=== PATIENT | female | born 1975 | race Caucasian/White ===

== ENCOUNTER 2020-05-10 10:11 | Outpatient (REF) | payer BC, SELFPAY ==
[2020-05-10 11:56] LABS: MANUAL DIFF FLAG NO
[2020-05-10 12:01] LABS: Basophils Percent Auto 0.6 % (0-2); Eosinophils Absolute Auto 0.1 X10*3/uL (0.0-0.4); Eosinophils Percent Auto 1.5 % (0-4); Hematocrit 36.7 % (37-47); Hemoglobin 11.5 g/dl (12.0-16.0); Imm Gran Abs Auto 0.01 X10*3/uL (0.00-0.03); Imm Gran Pct Auto 0.1 % (0.0-0.4); Lymphocytes Absolute Auto 2.5 X10*3/uL (1.2-4.9); Lymphocytes Percent Auto 36.8 % (20-40); Mean Corpuscular HGB Conc 31.3 g/dl (31.0-35.0); Mean Corpuscular Hemoglobin 25.4 pg (27.0-33.0); Mean Corpuscular Volume 81.2 fL (80-98); Mean Platelet Volume 9.3 fL (9.4-12.3); Monocytes Absolute Auto 0.7 X10*3/uL (0.1-1.2); Monocytes Percent Auto 9.9 % (2-11); Neutrophils Absolute Auto 3.5 X10*3/uL (2.0-8.3); Neutrophils Percent Auto 51.1 % (45-73); Platelet Count 439 X10*3/uL (160-400); Red Blood Count 4.52 X10*6/uL (4.20-5.50); Red Cell Distribution Width 14.6 % (11.0-16.0); White Blood Count 6.8 X10*3/uL (4.8-10.8)
[2020-05-10 12:38] LABS: Alanine Aminotransferase 13 U/L (0-31); Albumin Level 4.3 g/dL (3.5-5.0); Alkaline Phosphatase 56 U/L (39-117); Anion Gap 12 (12-20); Aspartate Amino Transferase 12 U/L (5-31); Bilirubin Total 0.4 mg/dL (0.0-1.0); Blood Urea Nitrogen 12 mg/dL (9-16); Calcium 9.4 mg/dL (8.4-10.2); Carbon Dioxide 27 mmol/L (22-29); Chloride 105 mmol/L (96-108); Cholesterol 184 mg/dL; Estimated Glomerular Filt Rate > 60; Glucose Fasting 99 mg/dL (60-99); HDL Cholesterol 53 mg/dL; LDL Cholesterol Calculated 118 mg/dl; Potassium 4.6 mmol/L (3.3-5.1); Sodium 139 mmol/L (135-145); Total Protein 7.3 g/dL (6.5-8.0); Triglycerides 68 mg/dL
[2020-05-10 12:42] LABS: TSH reflex Free T4 2.21 uIU/mL (0.32-4.0)
[2020-05-10 12:46] LABS: Creatinine Urine 147.62 mg/dL; Microalbum/Creatinine Ratio Ur 14.9 ug/mg cr
[2020-05-12 16:49] LABS: Folate 19.8 ng/mL (> or = 4.0); Vitamin B12 652 pg/mL (200-900)
== END 2020-05-10 10:12 | disposition home or self-care (01) ==
LOC: HO.WFDLDS 10:11
PROVIDERS: Visit Provider Family Medicine
DX: Z00.00 Encounter for general adult medical examination without abnormal findings (principal); R53.83 Other fatigue; I10 Essential (primary) hypertension; E11.9 Type 2 diabetes mellitus without complications; E78.5 Hyperlipidemia, unspecified
CPT/HCPCS: 36415; 80053; 80061; 82043; 82607; 82746; 84443; 85025

== ENCOUNTER 2022-01-02 07:04 | Outpatient (REF) | payer BC, SELFPAY ==
[2022-01-02 12:00] LABS: Basophils Percent Auto 0.5 % (0-2); Eosinophils Absolute Auto 0.1 X10*3/uL (0.0-0.4); Eosinophils Percent Auto 0.7 % (0-4); Hematocrit 36.9 % (37.0-47.0); Hemoglobin 11.9 g/dl (12.0-16.0); Imm Gran Abs Auto 0.02 X10*3/uL (0.00-0.03); Imm Gran Pct Auto 0.3 % (0.0-0.4); Lymphocytes Absolute Auto 2.3 X10*3/uL (1.2-4.9); Lymphocytes Percent Auto 31.1 % (20-40); MANUAL DIFF FLAG NO; Mean Corpuscular HGB Conc 32.2 g/dl (31.0-35.0); Mean Corpuscular Hemoglobin 25.5 pg (27.0-33.0); Mean Platelet Volume 9.3 fL (9.4-12.3); Monocytes Absolute Auto 0.6 X10*3/uL (0.1-1.2); Monocytes Percent Auto 8.7 % (2-11); Neutrophils Absolute Auto 4.3 x10*3/uL (2.0-8.3); Neutrophils Percent Auto 58.7 % (45-73); Platelet Count 386 X10*3/uL (160-400); Red Blood Count 4.67 X10*6/uL (4.20-5.50); Red Cell Distribution Width 15.6 % (11.0-16.0); White Blood Count 7.3 X10*3/uL (4.8-10.8)
[2022-01-02 12:01] LABS: Appearance Urine Clear; Color Urine Yellow; Glucose Urine UA Negative (Negative); Leukocyte Esterase Urine Negative (Negative); Nitrite Urine Negative (Negative); PH 5.5 (5.0-9.0); Specific Gravity - Urine 1.025 (1.005-1.025); Urine Blood Negative (Negative); Urine Ketones Negative (Negative); Urine Protein Negative (Neg-Trace)
[2022-01-02 12:35] LABS: Creatinine Urine 192.54 mg/dL; Microalbum/Creatinine Ratio Ur 21.8 ug/mg cr
[2022-01-02 12:49] LABS: TSH reflex Free T4 2.24 uIU/mL (0.32-4.0)
[2022-01-02 12:50] LABS: Alanine Aminotransferase 11 U/L (0-31); Albumin Level 4.1 g/dL (3.5-5.0); Alkaline Phosphatase 55 U/L (39-117); Anion Gap 15 (12-20); Aspartate Amino Transferase 12 U/L (5-31); Bilirubin Total 0.2 mg/dL (0.0-1.0); Blood Urea Nitrogen 15 mg/dL (9-16); Calcium 9.1 mg/dL (8.4-10.2); Carbon Dioxide 21 mmol/L (22-29); Chloride 104 mmol/L (96-108); Cholesterol 200 mg/dL; Estimated Glomerular Filt Rate > 60; Glucose Fasting 133 mg/dL (60-99); HDL Cholesterol 46 mg/dL; LDL Cholesterol Calculated 121 mg/dl; Potassium 4.3 mmol/L (3.3-5.1); Sodium 136 mmol/L (135-145); Triglycerides 166 mg/dL
== END 2022-01-02 07:05 | disposition home or self-care (01) ==
LOC: HO.WFDLDS 07:04
PROVIDERS: Visit Provider Family Medicine
DX: Z00.00 Encounter for general adult medical examination without abnormal findings (principal); I10 Essential (primary) hypertension
CPT/HCPCS: 36415; 80053; 80061; 81003; 82043; 84443; 85025

== ENCOUNTER 2022-05-31 06:46 | Outpatient (REF) | payer BC, SELFPAY ==
[2022-05-31 07:49] LABS: Estimated Average Glucose 134 mg/dL; Hemoglobin A1c % 6.3 %
[2022-05-31 08:01] LABS: Alanine Aminotransferase 12 U/L (0-31); Alkaline Phosphatase 62 U/L (39-117); Anion Gap 14 (12-20); Aspartate Amino Transferase 13 U/L (5-31); Bilirubin Total 0.5 mg/dL (0.0-1.0); Blood Urea Nitrogen 11 mg/dL (9-16); Calcium 9.1 mg/dL (8.4-10.2); Carbon Dioxide 23 mmol/L (22-29); Chloride 106 mmol/L (96-108); Cholesterol 200 mg/dL; Estimated Glomerular Filt Rate > 60; Glucose Random 145 mg/dL (60-115); HDL Cholesterol 41 mg/dL; LDL Cholesterol Calculated 124 mg/dl; Potassium 4.7 mmol/L (3.3-5.1); Sodium 138 mmol/L (135-145); Total Protein 6.7 g/dL (6.5-8.0); Triglycerides 176 mg/dL
== END 2022-05-31 06:47 | disposition home or self-care (01) ==
LOC: HO.LAB 06:46
PROVIDERS: PCP Family Medicine; Visit Provider Family Medicine
DX: Z00.00 Encounter for general adult medical examination without abnormal findings (principal); E78.5 Hyperlipidemia, unspecified; E11.9 Type 2 diabetes mellitus without complications; I10 Essential (primary) hypertension
CPT/HCPCS: 36415; 80053; 80061; 83036

== ENCOUNTER 2023-03-05 06:52 | Outpatient (REF) | payer BC, SELFPAY ==
[2023-03-05 08:03] LABS: Alanine Aminotransferase 17 U/L (0-31); Alkaline Phosphatase 69 U/L (39-117); Anion Gap 10 (12-20); Aspartate Amino Transferase 14 U/L (5-31); Bilirubin Total 0.4 mg/dL (0.0-1.0); Blood Urea Nitrogen 11 mg/dL (9-16); Calcium 8.8 mg/dL (8.4-10.2); Carbon Dioxide 25 mmol/L (22-29); Chloride 106 mmol/L (96-108); Cholesterol 151 mg/dL (<200); Estimated Glomerular Filt Rate > 60; Glucose Fasting 185 mg/dL (60-99); HDL Cholesterol 44 mg/dL (>40); LDL Cholesterol Calculated 65 mg/dL (<100); Potassium 4.2 mmol/L (3.3-5.1); Sodium 137 mmol/L (135-145); Triglycerides 214 mg/dL (<150)
== END 2023-03-05 06:53 | disposition home or self-care (01) ==
LOC: HO.LAB 06:52
PROVIDERS: PCP Family Medicine; Visit Provider Family Medicine
DX: Z00.00 Encounter for general adult medical examination without abnormal findings (principal); E78.5 Hyperlipidemia, unspecified
CPT/HCPCS: 36415; 80053; 80061

== ENCOUNTER 2023-03-10 10:40 | Outpatient (AMB) | payer BC, SELFPAY ==
--- NOTE | 2023-03-10 10:46 | MHC.PC.OV ---
Vital Signs 03/10/23 10:49 03/10/23 10:57 Height 5 ft 6 in Weight 213 lb BMI 34.4 BP 158/100 H 160/100 H Blood Pressure Location Lt brachial Rt brachial Position Sitting Sitting Respiration 13 Pulse 92 Pulse Source Pulse Oximeter Pulse Oximetry (%) 98 Oxygen Delivery Method Room Air Intake Visit Reasons: f/u diabetes and hyperlipidemia Intake Note: Patient is here to discuss her labs. Patient Services Specialist Required: No Accompanied by: Self / Same As Patient Allergies prochlorperazine Allergy (Unknown, Verified 03/10/23 10:53) Panic and hyperactivity Tobacco use date assessed: 01/02/22 HPI f/u diabetes and hyperlipidemia HPI Details 47 y/o female presents to f/u diabetes and hyperlipidemia. Last A1c in May was 6.3%. She is diet-controlled for her diabetes. Labs were drawn 03/05/23. Reviewed labs with pt. Elevated fasting glucose of 185. A1c today 03/10/23 is 7.3%. Triglycerides 214. TC 151. LDL 65. HDL 44. She is on rosuvastatin 10mg daily. Blood pressure today 158/100. She had been on lisinopril in the past. She notes she has not been watching her sugars/starches over the holidays. [facility] Surgical History History of section History of parotid gland excision Family History (Updated 06/03/22 @ 15:41 by Juana Stallworth CMA) Father HTN (hypertension) CVD (cardiovascular disease) Mother HTN (hypertension) Graves disease Sister No problems noted. Son No problems noted. Daughter No problems noted. Social History (Updated 03/10/23 @ 10:55 by Bobbi Shah [facility]) Household Members: Spouse and Children Housing: House Alcohol intake: never Patient Tobacco Use Status: Never used Tobacco e-Cigarette/Vaping Use: Never Used Second Hand Smoke Exposure: No service: No Current occupational status: employed Current occupational exposures/hazards: No Sexual orientation: Unable to collect Gender identity: Unable to collect Cognitive needs: No Hearing needs: No Vision needs: No Questionnaire GARRETT-7 AMB Questionnaire GARRETT-7 Date GARRETT - 7 assessed: 01/02/22 Source: Developed by Drs. Yoel Peralta, Yola Elkins, Saman Ross and colleagues, with an educational marilyn from [employer]. Review of Systems Const Denies chills, Denies fatigue, Denies fever(s), Denies headache(s) and Denies weakness ENT Denies dizziness and Denies headache(s) Card Denies dyspnea Resp Denies cough, Denies dyspnea, Denies wheezing and Denies other (shortness of breath) Musc Denies numbness and Denies tingling Neuro Denies dizziness, Denies headache(s), Denies numbness, Denies tingling and Denies weakness Psych Denies anxiety and Denies depression Endo Denies fatigue Aller/Immun Denies wheezing Physical exam (Primary Care) Vital Signs: Last Vital Signs Pulse 92 03/10/23 10:49 Resp 13 03/10/23 10:49 BP 160/100 H 03/10/23 10:57 Pulse Ox 98 03/10/23 10:49 Oxygen Delivery Method Room Air 03/10/23 10:49 BMI result Body Mass Index 34.4 Tobacco/Smoking Status: Tobacco use Status Tobacco use date assessed 01/02/22 03/10/23 10:47 Patient Tobacco Use Status Never used Tobacco 03/10/23 10:55 e-Cigarette/Vaping Use Never Used 03/10/23 10:55 Const General: well developed; No acute distress Nutritional Appearance: obese Orientation/consciousness: patient oriented x3 HENMT Head: Yes normocephalic and Yes atraumatic Eyes General: appearance normal, both eyes and all related structures Pupils: Equal, round and reactive pupils present EOM: EOMs intact bilaterally Resp Effort & Inspection: normal respiratory effort Auscultation: clear to auscultation bilaterally Cardio Rate: regular rate Rhythm: regular rhythm Heart sounds: S1 normal heart sound present, S2 normal heart sound present, no gallops, no murmurs and no rubs Neuro General: patient oriented x3 and gait normal Cranial nerves: Yes Equal, round and reactive pupils present Psych Affect: normal affect Assessment and Plan Assessment & Plan (1) Diet-controlled diabetes mellitus: Code(s): E11.9 - Type 2 diabetes mellitus without complications Plan: A1c?today?is 7.3%. Goal?is?less?than?7.0% Will?give?her?some?glipizide?and?I?encouraged?lifestyle?changes. Hopefully?with?lifestyle?changes?she?can?discontinue?glipizide?soon?and?resume?diet?control. (2) Essential hypertension: Code(s): I10 - Essential (primary) hypertension Plan: Blood?pressure?is?high.??She?had?been?on?lisinopril?in?the?past. Will?resume?lisinopril?5?mg?daily. (3) Hyperlipidemia: Code(s): E78.5 - Hyperlipidemia, unspecified Plan: TC?and?LDL?cholesterol?are?well?controlled?on?rosuvastatin.??HDL?is?good. Triglycerides?are?high?and?this?may?be?a?function?of?her?elevated ?blood?sugar. Continue?rosuvastatin Encouraged?lifestyle?changes Orders: Orders AMB Hemoglobin A1c Today E11.9 - Type 2 diabetes mellitus without complications Medications: New glipizide ER 5 mg PO DAILY 30 tabs 1RF 30 days Changed From lisinopril 5 mg PO DAILY 1 tab 2RF To lisinopril 5 mg PO DAILY 30 days 30 tabs 2RF Coding Level of Care Code Est Pt Level 4 (97174) Diagnoses Diet-controlled diabetes mellitus E11.9 Essential hypertension I10 Hyperlipidemia E78.5
[2023-03-10 10:49] VITALS: BP 158/100; PULSE 92; RESP 13; O2SAT 98; BMI 34.4
[2023-03-10 10:57] VITALS: BP 160/100
== END 2023-03-10 11:13 | disposition home or self-care (01) ==
PROVIDERS: PCP Family Medicine; Visit Provider Family Medicine
DX: E11.9 Type 2 diabetes mellitus without complications (principal); I10 Essential (primary) hypertension; E78.5 Hyperlipidemia, unspecified
CPT/HCPCS: 83036; 99214

== ENCOUNTER 2023-05-13 09:44 | Outpatient (AMB) | payer BC, SELFPAY ==
[2023-05-13 09:48] VITALS: BP 158/88; PULSE 83; O2SAT 98; BMI 33.9
--- NOTE | 2023-05-13 09:48 | MHC.PC.OV ---
Vital Signs 05/13/23 09:48 Height 5 ft 6 in Weight 210 lb BMI 33.9 BP 158/88 H Blood Pressure Location Lt brachial Position Sitting Pulse 83 Pulse Source Pulse Oximeter Pulse Oximetry (%) 98 Oxygen Delivery Method Room Air Intake Visit Reasons: f/u hypertension and diabetes Intake Note: Patient is here to follow up on hypertension and diabetes. Allergies prochlorperazine Allergy (Unknown, Verified 05/13/23 09:50) Panic and hyperactivity Tobacco use date assessed: 05/13/23 Dental Screening Dental Screen Date: 05/13/23 Did you have a dental visit in the last 12 months?: Yes Did you have a dental problem in the last 6 months where you did not have access to dental care?: No Was dental information given to patient?: Patient has dentist HPI f/u hypertension and diabetes HPI Details 48 y/o female presents to f/u hypertension and diabetes. Last A1c 03/10/23 7.3%. Previously diet controlled and had started her on glipizide ER 5mg daily. Pt reports dizziness from relatively low blood sugar in the 80s. Blood pressure today 158/88. She is on lisinopril-hydrochlorothiazide 10-12.5mg daily. COUNT INCLUDES [facility] Surgical History History of parotid gland excision History of section Family History Father HTN (hypertension) CVD (cardiovascular disease) Mother HTN (hypertension) Graves disease Sister No problems noted. Son No problems noted. Daughter No problems noted. 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 Current occupational exposures/hazards: No Sexual orientation: Unable to collect Gender identity: Unable to collect Cognitive needs: No Hearing needs: No Vision needs: No Questionnaire PHQ-9 Over the last 2 weeks, how often have you been bothered by any of the following problems? 1. Little interest or pleasure in doing things: not at all 2. Feeling down, depressed, or hopeless: not at all 3. Trouble falling or staying asleep, or sleeping too much: not at all 4. Feeling tired or having little energy: not at all 5. Poor appetite or overeating: not at all 6. Feeling bad about yourself - or that you are a failure or have let yourself or your family down: not at all 7. Trouble concentrating on things, such as reading the newspaper or watching television: not at all 8. Moving or speaking so slowly that other people could have noticed. Or the opposite - being so fidgety or restless that you have been moving around a lot more than usual: not at all 9. Thoughts that you would be better off or of hurting yourself in some way: not at all Total score: 0 Depression Screening Interpretation: Negative Depression Screening Done: Yes Source: Developed by Drs. Yoel Peralta, Yola Elkins, Saman Ross and colleagues, with an educational marilyn from [employer]. Thrive Questionnaire Date Thrive assessed: 05/13/23 I am a: Patient What is your living situation today?: I have a steady place to live Within the past 12 months, did the food you bought not last and you didn't have the money to get more?: Never true Within the past 12 months, did you worry whether your food would run out before you got money to buy more?: Never true Do you have trouble paying for medicines?: No Do you have trouble getting transportation to medical appointments?: No Do you have trouble paying your heating and electricity bill?: No Do you have trouble taking care of your child, family member or friend?: No Do you have trouble with day-to-day activities such as bathing, preparing meals, shopping, managing finances, etc.?: No Are you currently unemployed and looking for a job?: No Are you interested in more education?: No THRIVE Score: 0 AUDIT C Alcohol Use Questionnaire (AUDIT-C) 1. How often do you have a drink containing alcohol?: Monthly or less 2. How many drinks containing alcohol do you have on a typical day when you are drinking?: 1 or 2 3. How often do you have six or more drinks on one occasion?: Never Total Score: 1 GARRETT-7 AMB Questionnaire GARRETT-7 Date GARRETT - 7 assessed: 05/13/23 Feeling nervous, anxious, or on edge: 0 = Not at all Not being able to stop or control worryin = Not at all Worrying too much about different things: 0 = Not at all Trouble relaxin = Not at all Being so restless that it is hard to sit still: 0 = Not at all Becoming easily annoyed or irritable: 0 = Not at all Feeling afraid as if something awful might happen: 0 = Not at all Total GARRETT-7 score (0-4 normal; 5-9 mild; 10-14 moderate; 15-21 severe): 0 Source: Developed by Drs. Yoel Peralta, Yola Elkins, Saman Ross and colleagues, with an educational marilyn from [employer]. Review of Systems Const Denies chills, Denies fatigue, Denies fever(s), Denies headache(s) and Denies weakness ENT Denies dizziness and Denies headache(s) Card Denies chest pain, Denies lightheadedness, Denies dyspnea and Denies other (Palpitations) Resp Denies cough, Denies dyspnea, Denies wheezing and Denies other ( shortness of breath) Musc Denies numbness and Denies tingling Neuro Denies dizziness, Denies headache(s), Denies numbness, Denies tingling, Denies paresthesias and Denies weakness Psych Denies anxiety and Denies depression Endo Denies fatigue Aller/Immun Denies wheezing Physical exam (Primary Care) Vital Signs: Last Vital Signs Pulse 83 05/13/23 09:48 BP 158/88 H 05/13/23 09:48 Pulse Ox 98 05/13/23 09:48 Oxygen Delivery Method Room Air 05/13/23 09:48 BMI result Body Mass Index 33.9 Tobacco/Smoking Status: Tobacco use Status Tobacco use date assessed 05/13/23 05/13/23 09:52 Patient Tobacco Use Status Never used Tobacco 05/13/23 09:52 e-Cigarette/Vaping Use Never Used 05/13/23 09:52 PHQ-9: PHQ-9 Score PHQ-9: Total score 0 05/13/23 10:00 Depression Screening Interpretation: Negative Thrive Assessment: Date of Thrive Assessment Date Thrive assessed 05/13/23 05/13/23 10:00 Const General: no acute distress and well developed Nutritional Appearance: well nourished Orientation/consciousness: patient oriented x3 [facility] Head: Yes normocephalic and Yes atraumatic Eyes General: appearance normal, both eyes and all related structures Pupils: Equal, round and reactive pupils present EOM: EOMs intact bilaterally Resp Effort & Inspection: normal respiratory effort Auscultation: clear to auscultation bilaterally Cardio Rate: regular rate Rhythm: regular rhythm Heart sounds: S1 normal heart sound present, S2 normal heart sound present, no gallops, no murmurs and no rubs Neuro General: patient oriented x3 and gait normal Cranial nerves: Yes Equal, round and reactive pupils present Psych Affect: normal affect Assessment and Plan Assessment & Plan (1) Essential hypertension: Code(s): I10 - Essential (primary) hypertension Plan: Diastolic?blood?pressure?has?improved?but?her?systolic?blood?pressure?is?still?too?high. Will?increase?lisinopril?in?her?combo?pill. New?dose lisinopril-hydrochlorothiazide?. (2) Diabetes: Code(s): E11.9 - Type 2 diabetes mellitus without complications Plan: She?has?only?taken?her?glipizide?few?times?and?noted?that?her?blood?sugar?went?down?to?80?and?she?felt?a?little?shaky. We?discussed?that?80?is?a?normal?blood?sugar?but?she?may?be?feeling?some?relative?low?blood?sugars She?will?try?2.5?mg?of?glipizide?for?a?little?while?to?get?used?to?it. She?can?recheck?her?blood?sugars?after?15?minutes?if?her?blood?sugars?are?in?the?70s?or?80s?to?ensure?it?is?not?going?lower Eat?regular?meals Work?on?weight?loss?and?exercise Medications: New lisinopril-hydrochlorothiazide 20-12.5 mg 1 tab PO DAILY 90 tabs 2RF 90 days Discontinued lisinopril-hydrochlorothiazide 10-12.5 mg Discontinued Reason: Doctor's Order 1 tab PO DAILY 30 tabs 2RF 30 days Coding Level of Care Code Est Pt Level 3 (99503) Diagnoses Essential hypertension I10 Diabetes E11.9
== END 2023-05-13 10:13 | disposition home or self-care (01) ==
PROVIDERS: PCP Family Medicine; Visit Provider Family Medicine
DX: I10 Essential (primary) hypertension (principal); E11.9 Type 2 diabetes mellitus without complications
CPT/HCPCS: 99213

== ENCOUNTER 2023-07-15 08:37 | Outpatient (AMB) | payer BC, SELFPAY ==
[2023-07-15 08:42] VITALS: BP 156/73; PULSE 93; O2SAT 100; BMI 33.1
--- NOTE | 2023-07-15 08:42 | A.OFFPC_ITS ---
Vital Signs 07/15/23 08:42 Height 5 ft 6 in Weight 205 lb BMI 33.1 BP 156/73 H Blood Pressure Location Lt brachial Position Sitting Pulse 93 Pulse Source Pulse Oximeter Pulse Oximetry (%) 100 Oxygen Delivery Method Room Air Intake Visit Reasons: f/u hypertension and diabetes Intake Note: Patient is here to follow up on hypertension and diabetes. Allergies prochlorperazine Allergy (Unknown, Verified 07/15/23 08:44) Panic and hyperactivity Medication List - Last Reconciled 07/15/23 by Donis Damian MD glipizide ER 5 mg PO DAILY 30 days lisinopril-hydrochlorothiazide 20-12.5 mg 1 tab PO DAILY 90 days rosuvastatin 10 mg PO DAILY 30 days scopolamine base 1 patch transdermal Q3D PRN 14 days Tobacco use date assessed: 07/15/23 Dental Screening Dental Screen Date: 05/13/23 HPI f/u hypertension and diabetes HPI Details 48 y/o female presents to f/u hypertensi on, diabetes. A1c today 07/15/23 is 7.1%, which improved from 7.3%. She is on glipizide 5mg daily. Blood pressure today 156/73. She is on lisinopril-hydrochlorothiazide 20-12.5mg daily. She notes she has an eye exam scheduled next month. HPI Comments History of Present Illness Details Documentation assistance for Donis Damian MD, was provided by Hima Orozco, Physiotherapy Assistant on 07/15/2023 9:02 AM [facility]. Gabriela, Dr. Damian, have read, observed, and verified documentation. [facility] Surgical History History of parotid gland excision History of section Family History Father HTN (hypertension) CVD (cardiovascular disease) Mother HTN (hypertension) Graves disease Sister No problems noted. Son No problems noted. Daughter No problems noted. 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 Current occupational exposures/hazards: No Sexual orientation: Unable to collect Gender identity: Unable to collect Cognitive needs: No Hearing needs: No Vision needs: No Questionnaire Thrive Questionnaire Date Thrive assessed: 05/13/23 GARRETT-7 AMB Questionnaire GARRETT-7 Date GARRETT - 7 assessed: 05/13/23 Source: Developed by Drs. Yoel Peralta, Yola Elkins, Saman Ross and colleagues, with an educational marilyn from [employer]. Review of Systems Const Denies chills, Denies fatigue, Denies fever(s), Denies headache(s) and Denies weakness ENT Denies dizziness and Denies headache(s) Card Denies dyspnea Resp Denies cough, Denies dyspnea, Denies wheezing and Denies other (shortness of breath) Musc Denies numbness and Denies tingling Neuro Denies dizziness, Denies headache(s), Denies numbness, Denies tingling and Denies weakness Psych Denies anxiety and Denies depression Endo Denies fatigue Aller/Immun Denies wheezing Physical exam (Primary Care) Vital Signs: Last Vital Signs Pulse 93 07/15/23 08:42 BP 156/73 H 07/15/23 08:42 Pulse Ox 100 07/15/23 08:42 Oxygen Delivery Method Room Air 07/15/23 08:42 BMI result Body Mass Index 33.1 Tobacco/Smoking Status: Tobacco use Status Tobacco use date assessed 07/15/23 07/15/23 08:44 Patient Tobacco Use Status Never used Tobacco 07/15/23 08:44 e-Cigarette/Vaping Use Never Used 07/15/23 08:44 Thrive Assessment: Date of Thrive Assessment Date Thrive assessed 05/13/23 07/15/23 08:44 Const General: well developed; No acute distress Nutritional Appearance: well nourished Orientation/consciousness: patient oriented x3 HENMT Head: Yes normocephalic and Yes atraumatic Eyes General: appearance normal, both eyes and all related structures Pupils: Equal, round and reactive pupils present EOM: EOMs intact bilaterally Resp Effort & Inspection: normal respiratory effort Auscultation: clear to auscultation bilaterally Cardio Rate: regular rate Rhythm: regular rhythm Heart sounds: S1 normal heart sound present, S2 normal heart sound present, no gallops, no murmurs and no rubs Neuro General: patient oriented x3 and gait normal Cranial nerves: Yes Equal, round and reactive pupils present Psych Affect: normal affect Results AMB Hemoglobin A1c AMB Hemoglobin A1c 7.1 % Last Edit by Juana Stallworth CMA on 07/15/23 08:59 Results Reviewed Results Reviewed: Laboratory Last Values Hgb A1c (Clinic) 7.1 % (4.0-6.0) H 07/15/23 08:53 Assessment and Plan Assessment & Plan (1) Essential hypertension: Code(s): I10 - Essential (primary) hypertension Plan: Blood?pressure?is?still?high?despite?increa sing?the?lisinopril?in?her?combo?pill?from?10?mg?daily?to?20?mg?daily. She?is?on?lisinopril-hydrochlorothiazide?19/02.5. Will?add?amlodipine?5?mg?daily Follow-up?in?3?months (2) Diabetes: Code(s): E11.9 - Type 2 diabetes mellitus without complications Plan: She?is?taking?glipizide?as?prescribed A1c?improved?from?7.3%?to?7.1%. Fair?control?and?improving.??Goal?is?less?than?7.0% Continue?current?medication?regimen?and?I?encouraged?diabetic?diet She?has?an?upcoming?appointment?with?Ophthalmology Orders: Orders AMB Hemoglobin A1c Today Z13.9 - Encounter for screening, unspecified Medications: New amlodipine 5 mg PO DAILY 90 days 90 tabs 2RF Coding Level of Care Code Est Pt Level 3 (30979) Diagnoses Essential hypertension I10 Diabetes E11.9
== END 2023-07-15 09:15 | disposition home or self-care (01) ==
PROVIDERS: PCP Family Medicine; Visit Provider Family Medicine
DX: I10 Essential (primary) hypertension (principal); E11.9 Type 2 diabetes mellitus without complications
CPT/HCPCS: 83036; 99213

== ENCOUNTER 2023-11-27 14:38 | Outpatient (AMB) | payer BC, SELFPAY ==
--- NOTE | 2023-11-27 14:49 | MHC.PC.OV ---
Vital Signs 11/27/23 14:51 Height 5 ft 6 in Weight 209 lb 2 oz BMI 33.7 BP 120/80 Blood Pressure Location Rt brachial Position Sitting Respiration 12 Pulse 94 Pulse Source Pulse Oximeter Temp 98.3 F Temp Source Oral Pulse Oximetry (%) 99 Oxygen Delivery Method Room Air Intake Visit Reasons: f/u diabetes, hypertension Intake Note: follow up DM and htn Allergies prochlorperazine Allergy (Unknown, Verified 11/27/23 14:50) Panic and hyperactivity Medication List - Last Reconciled 11/27/23 by Donis Damian MD amlodipine 5 mg PO DAILY 90 days glipizide ER 5 mg PO DAILY 30 days lisinopril-hydrochlorothiazide 20-12.5 mg 1 tab PO DAILY 90 days rosuvastatin 10 mg PO DAILY 30 days scopolamine base 1 patch transdermal Q3D PRN 14 days Tobacco use date assessed: 07/15/23 Dental Screening Dental Screen Date: 05/13/23 HPI f/u diabetes, hypertension HPI Details 48 y/o female presents to f/u diabetes, hypertension. Had increased her lisinopril in her combo pill as her systolic pressure had been too high. She only took glipizide a couple of times because she noted blood sugars going down to the 80s and felt shaky. We discussed this and she will trialing titrating on this starting at 2.5 mg daily of glipizide. A1c today 11/27/23 6.6%. HPI Comments History of Present Illness Details Documentation assistance for Donis Damian MD, was provided by Hima Orozco, [employer] on 11/27/2023 at 2:54 PM EST. I, Dr. Damian, have read, observed, and verified documentation. FORMERLY [facility], [facility]–1983 Surgical History History of parotid gland excision History of section Family History Father HTN (hypertension) CVD (cardiovascular disease) Mother HTN (hypertension) Graves disease Sister No problems noted. Son No problems noted. Daughter No problems noted. 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 Current occupational exposures/hazards: No Sexual orientation: Unable to collect Gender identity: Unable to collect Cognitive needs: No Hearing needs: No Vision needs: No Questionnaire Thrive Questionnaire Date Thrive assessed: 05/13/23 AUDIT C Alcohol Use Questionnaire (AUDIT-C) 2. How many drinks containing alcohol do you have on a typical day when you are drinking?: 1 or 2 3. How often do you have six or more drinks on one occasion?: Never Total Score: 0 GARRETT-7 AMB Questionnaire GARRETT-7 Date GARRETT - 7 assessed: 05/13/23 Source: Developed by Drs. Yoel Peralta, Yola Elkins, Saman Ross and colleagues, with an educational marilyn from [employer]. Review of Systems Const Denies chills, Denies fatigue, Denies fever(s), Denies headache(s) and Denies weakness ENT Denies dizziness and Denies headache(s) Card Denies dyspnea Resp Denies cough, Denies dyspnea, Denies wheezing and Denies other (shortness of breath) Musc Denies numbness and Denies tingling Neuro Denies dizziness, Denies headache(s), Denies numbness, Denies tingling and Denies weakness Psych Denies anxiety and Denies depression Endo Denies fatigue Aller/Immun Denies wheezing Physical exam (Primary Care) Vital Signs: Last Vital Signs Temp 98.3 F 11/27/23 14:51 Pulse 94 11/27/23 14:51 Resp 12 11/27/23 14:51 BP 120/80 11/27/23 14:51 Pulse Ox 99 11/27/23 14:51 Oxygen Delivery Method Room Air 11/27/23 14:51 BMI result Body Mass Index 33.7 Tobacco/Smoking Status: Tobacco use Status Tobacco use date assessed 07/15/23 11/27/23 14:54 Patient Tobacco Use Status Never used Tobacco 11/27/23 14:54 e-Cigarette/Vaping Use Never Used 11/27/23 14:54 Thrive Assessment: Date of Thrive Assessment Date Thrive assessed 05/13/23 11/27/23 14:54 Const General: well developed; No acute distress Nutritional Appearance: well nourished Orientation/consciousness: patient oriented x3 [facility] Head: Yes normocephalic and Yes atraumatic Eyes General: appearance normal, both eyes and all related structures Pupils: Equal, round and reactive pupils present EOM: EOMs intact bilaterally Resp Effort & Inspection: normal respiratory effort Auscultation: clear to auscultation bilaterally Cardio Rate: regular rate Rhythm: regular rhythm Heart sounds: S1 normal heart sound present, S2 normal heart sound present, no gallops, no murmurs and no rubs Neuro General: patient oriented x3 and gait normal Cranial nerves: Yes Equal, round and reactive pupils present Psych Affect: normal affect Assessment and Plan Assessment & Plan (1) Diabetes: Code(s): E11.9 - Type 2 diabetes mellitus without complications Plan: A1c?is?improved?at?6.6%.??Goal?is?less?than?7.0% Patient?would?like?to?trial?Ozempic. Will?start?Ozempic?0.25?mg?weekly. She?will?continue?her?glipizide?for?now?but?will?check?her?blood?sugars?and?she?can?discontinue?it?if?blood?sugars?are?getting?into?the?70s?or?any?lower. If?we?increase?the?dose?she?will?likely?be?able?to?discontinue?glipizide?and?just?use?Ozempic Continue?working?on?diabetic?diet Advised?diabetic?retinal?exam?and?she?says?she?has?an?hospice aide?that?she?plans?to?see. (2) Essential hypertension: Code(s): I10 - Essential (primary) hypertension Plan: Blood?pressure?appears?controlled.??Goal?is?less?than?140/90 Blood?pressure?was?high?at?last?visit?on?lisinopril?hydrochlorothiazide?and?I?had?sent?a?script?for?amlodipine. However,?patient?did?not?take?the?amlodipine?and?worked?on?diet?and?exercise. She?can?continue?lisinopril-hydrochlorothiazide?as?prescribed. Continue?exercise,?diet,?weight?loss?and?salt/sodium?avoidance (3) Obesity: Code(s): E66.9 - Obesity, unspecified Plan: Patient?would?like?to?try?Ozempic.??She?is?diabetic. Risks/benefits?of?Ozempic?were?discussed Start?Ozempic?and?we?can?follow-up?on?her?weight?at?her?next?visit. Orders: Orders Comprehensive [place]. Panel Fast Today Z00.00 - Encounter for general adult medical examination without abnormal findings TSH reflex Free T4 Today Z00.00 - Encounter for general adult medical examination without abnormal findings UA and rflx microscopic Today Z00.00 - Encounter for general adult medical examination without abnormal findings Microalbumin, Random (w Creat) Today I10 - Essential (primary) hypertension AMB Hemoglobin A1c Today Z13.9 - Encounter for screening, unspecified Lipid Panel Today Z00.00 - Encounter for general adult medical examination without abnormal findings LDL Cholesterol Direct Today E78.5 - Hyperlipidemia, unspecified Medications: New semaglutide (Ozempic) for 4 weeks 0.25 mg (0.368 mL) subcut QWEEK 28 days 1.472 mL 3RF E11.9 - Type 2 diabetes mellitus without complications, E66.9 - Obesity, unspecified Discontinued amlodipine Discontinued Reason: Doctor's Order 5 mg PO DAILY 90 days 90 tabs 2RF Coding Level of Care Code Est Pt Level 3 (88544) Diagnoses Diabetes E11.9 Essential hypertension I10 Obesity E66.9
[2023-11-27 14:51] VITALS: BP 120/80; PULSE 94; RESP 12; TEMP 36.8; O2SAT 99; BMI 33.7
== END 2023-11-27 15:14 | disposition home or self-care (01) ==
PROVIDERS: PCP Family Medicine; Visit Provider Family Medicine
DX: E11.9 Type 2 diabetes mellitus without complications (principal); I10 Essential (primary) hypertension; E66.9 Obesity, unspecified; Z68.33 Body mass index [BMI] 33.0-33.9, adult

== ENCOUNTER → 2023-11-27 14:38 | Outpatient (BNVA) | payer BC, SELFPAY | PROVIDERS: PCP Family Medicine; Visit Provider Family Medicine | DX: E11.9 Type 2 diabetes mellitus without complications (principal); I10 Essential (primary) hypertension; E66.9 Obesity, unspecified; Z68.33 Body mass index [BMI] 33.0-33.9, adult; Z79.899 Other long term (current) drug therapy ==

== ENCOUNTER 2024-02-17 14:26 | Outpatient (AMB) | payer BC, SELFPAY ==
--- NOTE | 2024-02-17 14:36 | MHC.PC.OV ---
Vital Signs 02/17/24 14:40 Height 5 ft 6 in Weight 211 lb BMI 34.1 BP 120/70 Blood Pressure Location Rt brachial Position Sitting Respiration 16 Pulse 90 Pulse Source Pulse Oximeter Pulse Oximetry (%) 98 Oxygen Delivery Method Room Air Intake Visit Reasons: f/u diabetes, hypertension, weight Intake Note: f/u dm htn weight management Allergies prochlorperazine Allergy (Unknown, Verified 02/17/24 14:39) Panic and hyperactivity Medication List - Last Reconciled 02/17/24 by Donis Damian MD glipizide ER 5 mg PO DAILY 30 days lisinopril-hydrochlorothiazide 20-12.5 mg 1 tab PO DAILY 90 days rosuvastatin 10 mg PO DAILY 30 days scopolamine base 1 patch transdermal Q3D PRN 14 days semaglutide (Ozempic) 0.25 mg (0.368 mL) subcut QWEEK 28 days Tobacco use date assessed: 07/15/23 Dental Screening Dental Screen Date: 05/13/23 HPI f/u diabetes, hypertension, weight HPI Details 48 y/o female presents to f/u diabetes, HTN, weight. Had started her on ozempic. Blood pressure today 120/70, 90p. She is on lisinopril-HCTZ 20-12.5mg daily. A1c today 7.0%. She is on glipizide 5mg daily. [facility] Surgical History History of parotid gland excision History of section Family History Father HTN (hypertension) CVD (cardiovascular disease) Mother HTN (hypertension) Graves disease Sister No problems noted. Son No problems noted. Daughter No problems noted. 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 Current occupational exposures/hazards: No Sexual orientation: Unable to collect Gender identity: Unable to collect Cognitive needs: No Hearing needs: No Vision needs: No Questionnaire PHQ-9 Over the last 2 weeks, how often have you been bothered by any of the following problems? 1. Little interest or pleasure in doing things: not at all 2. Feeling down, depressed, or hopeless: not at all 3. Trouble falling or staying asleep, or sleeping too much: not at all 4. Feeling tired or having little energy: not at all 5. Poor appetite or overeating: not at all 6. Feeling bad about yourself - or that you are a failure or have let yourself or your family down: not at all 7. Trouble concentrating on things, such as reading the newspaper or watching television: not at all 8. Moving or speaking so slowly that other people could have noticed. Or the opposite - being so fidgety or restless that you have been moving around a lot more than usual: not at all 9. Thoughts that you would be better off or of hurting yourself in some way: not at all Total score: 0 Source: Developed by Drs. Yoel Peralta, Yola Elkins, Saman Ross and colleagues, with an educational marilyn from [employer]. Thrive Questionnaire Date Thrive assessed: 02/17/24 I am a: Patient What is your living situation today?: I have a steady place to live Within the past 12 months, did the food you bought not last and you didn't have the money to get more?: Never true Within the past 12 months, did you worry whether your food would run out before you got money to buy more?: Never true Do you have trouble paying for medicines?: No Do you have trouble getting transportation to medical appointments?: No Do you have trouble paying your heating and electricity bill?: No Do you have trouble taking care of your child, family member or friend?: No Do you have trouble with day-to-day activities such as bathing, preparing meals, shopping, managing finances, etc.?: No Are you currently unemployed and looking for a job?: No Are you interested in more education?: No Please select the resources that you would like help with: None Currently or been in a relationship where the following occur: No concerns reported THRIVE Score: 0 AUDIT C Alcohol Use Questionnaire (AUDIT-C) 1. How often do you have a drink containing alcohol?: Monthly or less Total Score: 1 GARRETT-7 AMB Questionnaire GARRETT-7 Date GARRETT - 7 assessed: 05/13/23 Feeling nervous, anxious, or on edge: 1 = Several days Not being able to stop or control worryin = Several days Worrying too much about different things: 0 = Not at all Trouble relaxin = Not at all Being so restless that it is hard to sit still: 0 = Not at all Becoming easily annoyed or irritable: 0 = Not at all Feeling afraid as if something awful might happen: 0 = Not at all Total GARRETT-7 score (0-4 normal; 5-9 mild; 10-14 moderate; 15-21 severe): 2 Source: Developed by Drs. Yoel Peralta, Yola Elkins, Saman Ross and colleagues, with an educational marilyn from [employer]. Review of Systems Const Denies chills, Denies fatigue, Denies fever(s), Denies headache(s) and Denies weakness ENT Denies dizziness and Denies headache(s) Card Denies dyspnea Resp Denies cough, Denies dyspnea, Denies wheezing and Denies other (shortness of breath) Musc Denies numbness and Denies tingling Neuro Denies dizziness, Denies headache(s), Denies numbness, Denies tingling and Denies weakness Psych Denies anxiety and Denies depression Endo Denies fatigue Aller/Immun Denies wheezing Physical exam (Primary Care) Vital Signs: Last Vital Signs Pulse 90 02/17/24 14:40 Resp 16 02/17/24 14:40 BP 120/70 02/17/24 14:40 Pulse Ox 98 02/17/24 14:40 Oxygen Delivery Method Room Air 02/17/24 14:40 BMI result Body Mass Index 34.1 Tobacco/Smoking Status: Tobacco use Status Tobacco use date assessed 07/15/23 02/17/24 14:38 Patient Tobacco Use Status Never used Tobacco 02/17/24 14:38 e-Cigarette/Vaping Use Never Used 02/17/24 14:38 PHQ-9: PHQ-9 Score PHQ-9: Total score 0 02/17/24 15:12 Thrive Assessment: Date of Thrive Assessment Date Thrive assessed 02/17/24 02/17/24 14:38 Currently or been in a relationship where the following occur: No concerns reported Const General: well developed; No acute distress Nutritional Appearance: well nourished Orientation/consciousness: patient oriented x3 HENMT Head: Yes normocephalic and Yes atraumatic Eyes General: appearance normal, both eyes and all related structures Pupils: Equal, round and reactive pupils present EOM: EOMs intact bilaterally Resp Effort & Inspection: normal respiratory effort Neuro General: patient oriented x3 and gait normal Cranial nerves: Yes Equal, round and reactive pupils present Psych Affect: normal affect Coding Level of Care Code Est Pt Level 4 (98327) Diagnoses Diabetes E11.9 Essential hypertension I10 Obesity E66.9 Assessment & Plan Assessment & Plan (1) Diabetes: Code(s): E11.9 - Type 2 diabetes mellitus without complications Category: Medical Plan: A1c?7.0%. Suboptimally?controlled?glipizide?ER?5?mg?daily. Goal?is?less?than?7.0% We?have?been?waiting?approval?for?Ozempic. She?will?start?Ozempic?if?approved.??Otherwise?she?will?increase?glipizide?ER?5?mg?daily?to glipizide?ER?10?mg?daily. Ensure?regular?meals?watch?sugars?and?starches?diet. Continue?working?weight?loss (2) Essential hypertension: Code(s): I10 - Essential (primary) hypertension Category: Medical Plan: Blood?pressure?is?controlled.??Goal?is?less?than?140/90 Continue?medication?regimen (3) Obesity: Code(s): E66.9 - Obesity, unspecified Category: Medical Plan: As?above,?awaiting?approval?for?Ozempic Continue?working?diet?exercise?and?weight?loss
[2024-02-17 14:40] VITALS: BP 120/70; PULSE 90; RESP 16; O2SAT 98; BMI 34.1
== END 2024-02-17 15:22 | disposition home or self-care (01) ==
PROVIDERS: PCP Family Medicine; Visit Provider Family Medicine
DX: E11.9 Type 2 diabetes mellitus without complications (principal); I10 Essential (primary) hypertension; E66.9 Obesity, unspecified; Z68.34 Body mass index [BMI] 34.0-34.9, adult

== ENCOUNTER → 2024-02-17 14:26 | Outpatient (BNVA) | payer BC, SELFPAY | PROVIDERS: PCP Family Medicine; Visit Provider Family Medicine ==

== ENCOUNTER 2024-05-20 08:36 | Outpatient (AMB) | payer BC, SELFPAY ==
--- NOTE | 2024-05-20 08:44 | MHC.PC.OV ---
Vital Signs 05/20/24 08:56 Height 5 ft 6 in Weight 215 lb 4 oz BMI 34.7 BP 138/98 H Blood Pressure Location Rt brachial Position Sitting Respiration 16 Pulse 87 Pulse Source Pulse Oximeter Temp 98.7 F Temp Source Oral Pulse Oximetry (%) 97 Oxygen Delivery Method Room Air Intake Visit Reasons: f/u diabetes, HTN Intake Note: patient is scheduled for dm follow up and htn Child Welfare Consultant Required: No Allergies prochlorperazine Allergy (Unknown, Verified 05/20/24 08:52) Panic and hyperactivity Medication List - Last Reconciled 05/20/24 by Donis Damian MD glipizide ER 10 mg (2 x 5 mg) PO DAILY 30 days lisinopril-hydrochlorothiazide 20-12.5 mg 1 tab PO DAILY 90 days metformin 250 mg (1/2 x 500 mg) PO DAILY 90 days rosuvastatin 10 mg PO DAILY 30 days Tobacco use date assessed: 07/15/23 Dental Screening Dental Screen Date: 05/13/23 HPI f/u diabetes, HTN HPI Details 49 y/o female presents to f/u diabetes, HTN. Last A1c in January 7.0%. A1c today 05/20/24 7.4%. She is on Mounjaro 2.5mg, glipizide 10mg. She notes she had been unable to get mounjaro. Blood pressure today 138/98, 87p. She is on lisinopril-HCTZ 20-12.5mg daily. [facility] Surgical History History of parotid gland excision History of section Family History Father HTN (hypertension) CVD (cardiovascular disease) Mother HTN (hypertension) Graves disease Sister No problems noted. Son No problems noted. Daughter No problems noted. 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 Current occupational exposures/hazards: No Sexual orientation: Unable to collect Gender identity: Unable to collect Cognitive needs: No Hearing needs: No Vision needs: No Questionnaire PHQ-9 Over the last 2 weeks, how often have you been bothered by any of the following problems? 1. Little interest or pleasure in doing things: not at all 2. Feeling down, depressed, or hopeless: not at all 3. Trouble falling or staying asleep, or sleeping too much: not at all 4. Feeling tired or having little energy: not at all 5. Poor appetite or overeating: not at all 6. Feeling bad about yourself - or that you are a failure or have let yourself or your family down: not at all 7. Trouble concentrating on things, such as reading the newspaper or watching television: not at all 8. Moving or speaking so slowly that other people could have noticed. Or the opposite - being so fidgety or restless that you have been moving around a lot more than usual: not at all 9. Thoughts that you would be better off or of hurting yourself in some way: not at all Total score: 0 Source: Developed by Drs. Yoel Peralta, Yola Elkins, Saman Ross and colleagues, with an educational marilyn from [employer]. Thrive Questionnaire Date Thrive assessed: 05/19/24 I am a: Patient What is your living situation today?: I have a steady place to live Within the past 12 months, did the food you bought not last and you didn't have the money to get more?: Never true Within the past 12 months, did you worry whether your food would run out before you got money to buy more?: Never true Do you have trouble paying for medicines?: No Do you have trouble getting transportation to medical appointments?: No Do you have trouble paying your heating and electricity bill?: No Do you have trouble taking care of your child, family member or friend?: No Do you have trouble with day-to-day activities such as bathing, preparing meals, shopping, managing finances, etc.?: No Are you currently unemployed and looking for a job?: No Are you interested in more education?: No Please select the resources that you would like help with: None Currently or been in a relationship where the following occur: No concerns reported THRIVE Score: 0 AUDIT C Alcohol Use Questionnaire (AUDIT-C) 3. How often do you have six or more drinks on one occasion?: Never Total Score: 0 GARRETT-7 AMB Questionnaire GARRETT-7 Date GARRETT - 7 assessed: 05/13/23 Feeling nervous, anxious, or on edge: 1 = Several days Not being able to stop or control worryin = Several days Worrying too much about different things: 1 = Several days Trouble relaxin = Several days Being so restless that it is hard to sit still: 0 = Not at all Becoming easily annoyed or irritable: 0 = Not at all Feeling afraid as if something awful might happen: 0 = Not at all Total GARRETT-7 score (0-4 normal; 5-9 mild; 10-14 moderate; 15-21 severe): 4 Source: Developed by Drs. Yoel Peralta, Yola Elkins, Saman Ross and colleagues, with an educational marilyn from [employer]. Review of Systems Const Denies chills, Denies fatigue, Denies fever(s), Denies headache(s) and Denies weakness ENT Denies dizziness and Denies headache(s) Card Denies dyspnea Resp Denies cough, Denies dyspnea, Denies wheezing and Denies other (shortness of breath) Musc Denies numbness and Denies tingling Neuro Denies dizziness, Denies headache(s), Denies numbness, Denies tingling and Denies weakness Psych Denies anxiety and Denies depression Endo Denies fatigue Aller/Immun Denies wheezing Physical exam (Primary Care) Vital Signs: Last Vital Signs Temp 98.7 F 05/20/24 08:56 Pulse 87 05/20/24 08:56 Resp 16 05/20/24 08:56 BP 138/98 H 05/20/24 08:56 Pulse Ox 97 05/20/24 08:56 Oxygen Delivery Method Room Air 05/20/24 08:56 BMI result Body Mass Index 34.7 Tobacco/Smoking Status: Tobacco use Status Tobacco use date assessed 07/15/23 05/20/24 08:51 Patient Tobacco Use Status Never used Tobacco 05/20/24 08:51 e-Cigarette/Vaping Use Never Used 05/20/24 08:51 PHQ-9: PHQ-9 Score PHQ-9: Total score 0 03/20/25 09:17 Thrive Assessment: Date of Thrive Assessment Date Thrive assessed 05/19/24 05/20/24 08:51 Currently or been in a relationship where the following occur: No concerns reported Const General: well developed; No acute distress Nutritional Appearance: obese Orientation/consciousness: patient oriented x3 HENMT Head: Yes normocephalic and Yes atraumatic Eyes General: appearance normal, both eyes and all related structures Pupils: Equal, round and reactive pupils present EOM: EOMs intact bilaterally Resp Effort & Inspection: normal respiratory effort Neuro General: patient oriented x3 and gait normal Cranial nerves: Yes Equal, round and reactive pupils present Psych Affect: normal affect Results AMB Hemoglobin A1c AMB Hemoglobin A1c 7.4 % Last Edit by CAROLINE Alexander on 05/20/24 09:08 Results Reviewed Results Reviewed: Laboratory Last Values Hgb A1c (Clinic) 7.4 % (4.0-6.0) H 05/20/24 09:00 Coding Level of Care Code Est Pt Level 3 (31875) Diagnoses Diabetes E11.9 Essential hypertension I10 Assessment & Plan Assessment & Plan (1) Diabetes: Code(s): E11.9 - Type 2 diabetes mellitus without complications Category: Medical Plan: A1c?climbed?from?7.0%?to?7.4%.??Suboptimal?control. Goal?is?less?than?7.0% She?has?been?taking?glipizide?ER?10?mg?daily?but?was?unable?to?get?Mounjaro?or?Ozempic. Will?start?metformin?250?mg?daily Continue?working?at?diabetic?diet She?is?exercising She?still?wants?to?look?in?to?a?GLP?1?agonist.??She?will?let?know?if?insurance?covers?one. Patient?says?she?had?eye?exam?this?year.??Will?request?report (2) Essential hypertension: Code(s): I10 - Essential (primary) hypertension Category: Medical Plan: Blood?pressure?is?a?little?high?today.??She?feels?anxious. Prior?to?visits,?her?blood?pressure?was?controlled. No?changes?to?her?blood?pressure?regimen?today.??She?has?a?blood?pressure?monitor?home?will?let?know?if?it?is?consistently?elevated?at?home. Continue?current?regimen?and?follow-up?in?August Orders: Orders AMB Hemoglobin A1c Today E11.9 - Type 2 diabetes mellitus without complications Medications: New metformin 250 mg (1/2 x 500 mg) PO DAILY 90 days 45 tabs 3RF Discontinued tirzepatide (Mounjaro) for 4 weeks Discontinued Reason: Doctor's Order 2.5 mg (0.5 mL) subcut QWEEK 28 days 2 mL 3RF
[2024-05-20 08:56] VITALS: BP 138/98; PULSE 87; RESP 16; TEMP 37.1; O2SAT 97; BMI 34.7
== END 2024-05-20 09:31 | disposition home or self-care (01) ==
LOC: HO.HMCFM 08:37
PROVIDERS: PCP Family Medicine; Visit Provider Family Medicine
DX: E11.9 Type 2 diabetes mellitus without complications (principal); I10 Essential (primary) hypertension

== ENCOUNTER → 2024-05-20 08:36 | Outpatient (BNVA) | payer BC, SELFPAY | PROVIDERS: PCP Family Medicine; Visit Provider Family Medicine | DX: E11.9 Type 2 diabetes mellitus without complications (principal); I10 Essential (primary) hypertension; Z79.84 Long term (current) use of oral hypoglycemic drugs; Z79.899 Other long term (current) drug therapy | CPT/HCPCS: 83036; 96127 ==

== ENCOUNTER 2024-08-05 06:59 | Outpatient (REF) | payer BC, SELFPAY ==
[2024-08-05 08:12] LABS: Appearance Urine Clear; Color Urine Yellow; Glucose Urine UA Negative (Negative); Leukocyte Esterase Urine Negative (Negative); Nitrite Urine Negative (Negative); Urine Blood Negative (Negative); Urine Ketones Negative (Negative); Urine Protein Trace mg/dL (Neg-Trace)
[2024-08-05 08:33] LABS: Creatinine Urine 205.08 mg/dL; Microalbum/Creatinine Ratio Ur 12.1 ug/mg cr (<30)
[2024-08-05 08:46] LABS: Alanine Aminotransferase 32 U/L (0-31); Albumin Level 4.5 g/dL (3.5-5.0); Alkaline Phosphatase 59 U/L (39-117); Anion Gap 11 (12-20); Aspartate Amino Transferase 19 U/L (5-31); Bilirubin Total 0.4 mg/dL (0.0-1.0); Blood Urea Nitrogen 15 mg/dL (9-16); Calcium 9.8 mg/dL (8.4-10.2); Carbon Dioxide 28 mmol/L (22-29); Chloride 104 mmol/L (96-108); Cholesterol 168 mg/dL (<200); Estimated Glomerular Filt Rate > 60; Glucose Fasting 217 mg/dL (60-99); HDL Cholesterol 48 mg/dL (>40); LDL Cholesterol Calculated 74 mg/dL (<100); Potassium 4.4 mmol/L (3.3-5.1); Sodium 139 mmol/L (135-145); Total Protein 7.3 g/dL (6.5-8.0); Triglycerides 234 mg/dL (<150)
[2024-08-06 11:08] LABS: LDL Cholesterol Direct 93 mg/dL (<100)
== END 2024-08-05 07:00 | disposition home or self-care (01) ==
LOC: HO.LAB 06:59
PROVIDERS: PCP Family Medicine; Visit Provider Family Medicine
DX: Z00.00 Encounter for general adult medical examination without abnormal findings (principal); E78.5 Hyperlipidemia, unspecified; I10 Essential (primary) hypertension
CPT/HCPCS: 36415; 80053; 80061; 81003; 82043; 82570; 83721; 84443

== ENCOUNTER 2024-08-09 15:48 | Outpatient (AMB) | payer BC, SELFPAY ==
--- NOTE | 2024-08-09 15:59 | A.OFFPC_ITS ---
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 Required: No Allergies prochlorperazine Allergy (Unknown, Verified 08/09/24 16:01) Panic and hyperactivity Medication List - Last Reconciled 08/09/24 by Donis Damian MD glipizide ER 10 mg (2 x 5 mg) PO DAILY 30 days lisinopril-hydrochlorothiazide 20-12.5 mg 1 tab PO DAILY 90 days metformin 250 mg (1/2 x 500 mg) PO DAILY 90 days rosuvastatin 10 mg PO DAILY 30 days semaglutide (Ozempic) 0.25 mg (0.368 mL) subcut QWEEK 28 days Tobacco use date assessed: 07/15/23 Dental Screening Dental Screen Date: 08/09/24 Did you have a dental visit in the last 12 months?: Yes Did you have a dental problem in the last 6 months where you did not have access to dental care?: No Was dental information given to patient?: Patient has dentist HPI CPE with f/u labs and health maint HPI Details 49 y/o female presents for a CPE with f/ u labs and health maintenance. Labs drawn 08/05/24. Reviewed labs with pt. Fasting glucose 217. Elevated ALT of 32. Triglycerides 234. TC 168. LDL 93. HDL 48. A1c today climbed to 8.0%. [facility] Surgical History History of parotid gland excision History of section Family History Father HTN (hypertension) CVD (cardiovascular disease) Mother HTN (hypertension) Graves disease Sister No problems noted. Son No problems noted. Daughter No problems noted. 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 Current occupational exposures/hazards: No Sexual orientation: Unable to collect Gender identity: Unable to collect Cognitive needs: No Hearing needs: No Vision needs: No Questionnaire PHQ-9 Over the last 2 weeks, how often have you been bothered by any of the following problems? 1. Little interest or pleasure in doing things: not at all 2. Feeling down, depressed, or hopeless: not at all 3. Trouble falling or staying asleep, or sleeping too much: not at all 4. Feeling tired or having little energy: not at all 5. Poor appetite or overeating: not at all 6. Feeling bad about yourself - or that you are a failure or have let yourself or your family down: not at all 7. Trouble concentrating on things, such as reading the newspaper or watching television: not at all 8. Moving or speaking so slowly that other people could have noticed. Or the opposite - being so fidgety or restless that you have been moving around a lot more than usual: not at all 9. Thoughts that you would be better off or of hurting yourself in some way: not at all Total score: 0 Depression Screening Interpretation: Negative Depression Screening Done: Yes 95394 - PHQ-9 Billing: Yes Source: Developed by Drs. Yoel Peralta, Yola Elkins, Saman Ross and colleagues, with an educational marilyn from [employer]. Thrive Questionnaire Date Thrive assessed: 08/09/24 I am a: Patient What is your living situation today?: I have a steady place to live Within the past 12 months, did the food you bought not last and you didn't have the money to get more?: Never true Within the past 12 months, did you worry whether your food would run out before you got money to buy more?: Never true Do you have trouble paying for medicines?: No Do you have trouble getting transportation to medical appointments?: No Do you have trouble paying your heating and electricity bill?: No Do you have trouble taking care of your child, family member or friend?: No Do you have trouble with day-to-day activities such as bathing, preparing meals, shopping, managing finances, etc.?: No Are you currently unemployed and looking for a job?: No Are you interested in more education?: No Please select the resources that you would like help with: None Currently or been in a relationship where the following occur: No concerns reported THRIVE Score: 0 AUDIT C Alcohol Use Questionnaire (AUDIT-C) 1. How often do you have a drink containing alcohol?: Never 3. How often do you have six or more drinks on one occasion?: Never Total Score: 0 Score Reviewed/Action Taken: Yes GARRETT-7 AMB Questionnaire GARRETT-7 Date GARRETT - 7 assessed: 08/09/24 Feeling nervous, anxious, or on edge: 0 = Not at all Not being able to stop or control worryin = Not at all Worrying too much about different things: 0 = Not at all Trouble relaxin = Not at all Being so restless that it is hard to sit still: 0 = Not at all Becoming easily annoyed or irritable: 0 = Not at all Feeling afraid as if something awful might happen: 0 = Not at all Total GARRETT-7 score (0-4 normal; 5-9 mild; 10-14 moderate; 15-21 severe): 0 Source: Developed by Drs. Yoel Peralta, Yola Elkins, Saman Ross and colleagues, with an educational marilyn from [employer]. GARRETT-7 Assessment Billing GARRETT-7 Assessment Tool: GARRETT-7 Assessment 59410 Physical exam (Primary Care) Vital Signs: Last Vital Signs Temp 98.4 F 08/09/24 16:04 Pulse 89 08/09/24 16:04 Resp 16 08/09/24 16:04 BP 130/70 08/09/24 16:04 Pulse Ox 98 08/09/24 16:04 Oxygen Delivery Method Room Air 08/09/24 16:04 BMI result Body Mass Index 34.9 Tobacco/Smoking Status: Tobacco use Status Tobacco use date assessed 07/15/23 08/09/24 16:07 Patient Tobacco Use Status Never used Tobacco 08/09/24 16:07 e-Cigarette/Vaping Use Never Used 08/09/24 16:07 PHQ-9: PHQ-9 Score PHQ-9: Total score 0 08/09/24 16:33 Depression Screening Interpretation: Negative Thrive Assessment: Date of Thrive Assessment Date Thrive assessed 08/09/24 08/09/24 16:07 Currently or been in a relationship where the following occur: No concerns reported Coding Level of Care Code Est Pt Prev Care 40-64y(48811) Diagnoses Annual physical exam Z00.00 Essential hypertension I10 Hyperlipidemia E78.5 Diabetes E11.9 Breast cancer screening by mammogram Z12.31 Screening for cervical cancer Z12.4 Ear discomfort H92.09 Elevated liver enzymes R74.8 Screening for colon cancer Z12.11 Additional Codes GARRETT-7 Assessment Billing - GARRETT-7 Assessment Tool: GARRETT-7 Assessment 05186 ([id number]) PHQ-9 - 90695 - PHQ-9 Billing: Yes ([id number]) Assessment & Plan Assessment & Plan (1) Annual physical exam: Code(s): Z00.00 - Encounter for general adult medical examination without abnormal findings Category: Medical Plan: 49-year-old?female?presents?for?complete?physical?exam Encouraged?healthy?diet?with?active?lifestyle?and?exercise (2) Essential hypertension: Code(s): I10 - Essential (primary) hypertension Category: Medical Plan: Blood?pressure?is?controlled.??Goal?is?less?than?140/90 Continue?current?medications (3) Hyperlipidemia: Code(s): E78.5 - Hyperlipidemia, unspecified Category: Medical Plan: She?is?on?rosuvastatin?and?her?LDL?cholesterol?is?controlled. HDL?is?good Triglycerides?are?elevated?and?this?seems?to?have?risen?along?with?her glucose?levels - will?likely?improve?with?improvement?of?her?diabetes (4) Diabetes: Code(s): E11.9 - Type 2 diabetes mellitus without complications Category: Medical Plan: A1c?has?risen?to?8.0%.??Poor?control.??Goal?is?less?than?7.0% Currently?taking?glipizide?10?mg?daily?and?metformin?250?mg?q.a.m. She?says?her?insurance?has?told?her?they?will?cover?was?then?picked?will?start?t his?as?well. If?she?is?unable?to?get?the?Ozempic?she?dayna l?continue?glipizide?and?increase?metformin?to 250?mg?in?the?morning?and?500?mg?in?the?evening Encouraged?diabetic?diet (5) Breast cancer screening by mammogram: Code(s): Z12.31 - Encounter for screening mammogram for malignant neoplasm of breast Category: Medical Plan: Mammogram?showed?no?evidence?of?malignancy She?is?up-to-date Continue?annual?screening (6) Screening for cervical cancer: Code(s): Z12.4 - Encounter for screening for malignant neoplasm of cervix Category: Medical Plan: She?has?an?appointment?with?a?new?board certified family physician?coming?up She?will?for?her?office?visit?note (7) Ear discomfort: Code(s): H92.09 - Otalgia, unspecified ear Category: Medical Plan: Mild?right?ear?canal?irritation She?can?use?a?small?amount?of?hydrocortisone?cream Call?or?return?to?office?if?worsens?or?not?improving (8) Elevated liver enzymes: Code(s): R74.8 - Abnormal levels of other serum enzymes Category: Medical Plan: Borderline/mildly?elevated?ALT Will?recheck?with?next?blood?draw (9) Screening for colon cancer: Code(s): Z12.11 - Encounter for screening for malignant neoplasm of colon Category: Medical Plan: Patient?says?she?tried?a?Cologuard?test?but?that?it?was? Will?send?for?new?Cologuard?test Plan Mildly?elevated?liver?enzyme Orders: Orders Hemoglobin A1c Today E11.9 - Type 2 diabetes mellitus without complications, R73.01 - Impaired fasting glucose Comprehensive [place]. Panel Fast Today E11.9 - Type 2 diabetes mellitus without complications, Z00.00 - Encounter for general adult medical examination without abnormal findings Lipid Panel Today E78.5 - Hyperlipidemia, unspecified, Z00.00 - Encounter for general adult medical examination without abnormal findings Referrals Cologuard Test Z12.11 - Encounter for screening for malignant neoplasm of colon, Z12.12 - Encounter for screening for malignant neoplasm of rectum Medications: New semaglutide (Ozempic) for 4 weeks 0.25 mg (0.368 mL) subcut QWEEK 28 days 1.472 mL 3RF
[2024-08-09 16:04] VITALS: BP 130/70; PULSE 89; RESP 16; TEMP 36.9; O2SAT 98; BMI 34.9
== END 2024-08-09 16:51 | disposition home or self-care (01) ==
LOC: HO.HMCFM 15:49
PROVIDERS: PCP Family Medicine; Visit Provider Family Medicine
DX: Z00.00 Encounter for general adult medical examination without abnormal findings (principal); I10 Essential (primary) hypertension; E78.5 Hyperlipidemia, unspecified; E11.9 Type 2 diabetes mellitus without complications; Z12.31 Encounter for screening mammogram for malignant neoplasm of breast; Z12.4 Encounter for screening for malignant neoplasm of cervix; H92.09 Otalgia, unspecified ear; R74.8 Abnormal levels of other serum enzymes; Z12.11 Encounter for screening for malignant neoplasm of colon

== ENCOUNTER → 2024-08-09 15:48 | Outpatient (BNVA) | payer BC, SELFPAY | PROVIDERS: PCP Family Medicine; Visit Provider Family Medicine | DX: Z00.00 Encounter for general adult medical examination without abnormal findings (principal); I10 Essential (primary) hypertension; E78.5 Hyperlipidemia, unspecified; E11.9 Type 2 diabetes mellitus without complications; H92.01 Otalgia, right ear; R74.8 Abnormal levels of other serum enzymes; Z79.84 Long term (current) use of oral hypoglycemic drugs; Z79.85 Long-term (current) use of injectable non-insulin antidiabetic drugs; Z13.31 Encounter for screening for depression; Z13.30 Encounter for screening examination for mental health and behavioral disorders, unspecified | CPT/HCPCS: 96127 ==

== ENCOUNTER 2024-11-12 14:26 | Outpatient (AMB) | payer BC, SELFPAY ==
--- NOTE | 2024-11-12 14:27 | A.OFFPC_ITS ---
Vital Signs 11/12/24 14:32 Height 5 ft 6 in Weight 211 lb 8 oz BMI 34.1 BP 137/86 Blood Pressure Location Lt brachial Position Sitting Respiration 13 Pulse 92 Pulse Source Pulse Oximeter Temp 97.2 F Temp Source Temporal Artery Scan Pulse Oximetry (%) 100 Oxygen Delivery Method Room Air Intake Visit Reasons: f/u diabetes, labs Intake Note: Follow up on dm. Patient c/o both ears irritated for a few months now. Manager Assembly Required: No Allergies prochlorperazine Allergy (Unknown, Verified 11/12/24 14:28) Panic and hyperactivity Medication List - Last Reconciled 11/12/24 by Donis Damian MD glipizide ER 10 mg (2 x 5 mg) PO DAILY 30 days lisinopril-hydrochlorothiazide 20-12.5 mg 1 tab PO DAILY 90 days metformin 250 mg (1/2 x 500 mg) PO DAILY 90 days rosuvastatin 10 mg PO DAILY 30 days semaglutide (Ozempic) 0.25 mg (0.368 mL) subcut QWEEK 28 days Tobacco use date assessed: 11/12/24 Dental Screening Dental Screen Date: 11/12/24 Did you have a dental visit in the last 12 months?: Yes Did you have a dental problem in the last 6 months where you did not have access to dental care?: No Was dental information given to patient?: Patient has dentist HPI f/u diabetes, labs HPI Details 49 y/o female presents to f/u diabetes, labs. A1c today 11/12/24 6.6%. Blood pressure today 137/86, 92p. She is on lisinopril-HCTZ 20-12.5mg daily. [facility] Surgical History History of parotid gland excision History of section Family History Father HTN (hypertension) CVD (cardiovascular disease) Mother HTN (hypertension) Graves disease Sister No problems noted. Son No problems noted. Daughter No problems noted. 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 Current occupational exposures/hazards: No Sexual orientation: Unable to collect Gender identity: Unable to collect Cognitive needs: No Hearing needs: No Vision needs: No Questionnaire PHQ-9 Over the last 2 weeks, how often have you been bothered by any of the following problems? 1. Little interest or pleasure in doing things: not at all 2. Feeling down, depressed, or hopeless: not at all 3. Trouble falling or staying asleep, or sleeping too much: not at all 4. Feeling tired or having little energy: not at all 5. Poor appetite or overeating: not at all 6. Feeling bad about yourself - or that you are a failure or have let yourself or your family down: not at all 7. Trouble concentrating on things, such as reading the newspaper or watching television: not at all 8. Moving or speaking so slowly that other people could have noticed. Or the opposite - being so fidgety or restless that you have been moving around a lot more than usual: not at all 9. Thoughts that you would be better off or of hurting yourself in some way: not at all Total score: 0 Depression Screening Interpretation: Negative Depression Screening Done: Yes 46461 - PHQ-9 Billing: Yes Source: Developed by Drs. Yoel Peralta, Yola Elkins, Saman Ross and colleagues, with an educational marilyn from [employer]. Thrive Questionnaire Date Thrive assessed: 11/12/24 I am a: Patient What is your living situation today?: I have a steady place to live Within the past 12 months, did the food you bought not last and you didn't have the money to get more?: Never true Within the past 12 months, did you worry whether your food would run out before you got money to buy more?: Never true Do you have trouble paying for medicines?: No Do you have trouble getting transportation to medical appointments?: No Do you have trouble paying your heating and electricity bill?: No Do you have trouble taking care of your child, family member or friend?: No Do you have trouble with day-to-day activities such as bathing, preparing meals, shopping, managing finances, etc.?: No Are you currently unemployed and looking for a job?: No Are you interested in more education?: No Please select the resources that you would like help with: None Currently or been in a relationship where the following occur: No concerns reported THRIVE Score: 0 GARRETT-7 AMB Questionnaire GARRETT-7 Date GARRETT - 7 assessed: 11/12/24 Feeling nervous, anxious, or on edge: 0 = Not at all Not being able to stop or control worryin = Not at all Worrying too much about different things: 0 = Not at all Trouble relaxin = Not at all Being so restless that it is hard to sit still: 0 = Not at all Becoming easily annoyed or irritable: 0 = Not at all Feeling afraid as if something awful might happen: 0 = Not at all Total GARRETT-7 score (0-4 normal; 5-9 mild; 10-14 moderate; 15-21 severe): 0 Source: Developed by Drs. Yoel Peralta, Yola Elkins, Saman Ross and colleagues, with an educational marilyn from [employer]. GARRETT-7 Assessment Billing GARRETT-7 Assessment Tool: GARRETT-7 Assessment 65975 Review of Systems Const Denies chills, Denies fatigue, Denies fever(s), Denies headache(s) and Denies weakness ENT Denies dizziness and Denies headache(s) Card Denies dyspnea Resp Denies cough, Denies dyspnea, Denies wheezing and Denies other (shortness of breath) Musc Denies numbness and Denies tingling Neuro Denies dizziness, Denies headache(s), Denies numbness, Denies tingling and Denies weakness Psych Denies anxiety and Denies depression Endo Denies fatigue Aller/Immun Denies wheezing Physical exam (Primary Care) Vital Signs: Last Vital Signs Temp 97.2 F 11/12/24 14:32 Pulse 92 11/12/24 14:32 Resp 13 11/12/24 14:32 BP 137/86 11/12/24 14:32 Pulse Ox 100 11/12/24 14:32 Oxygen Delivery Method Room Air 11/12/24 14:32 BMI result Body Mass Index 34.1 Tobacco/Smoking Status: Tobacco use Status Tobacco use date assessed 11/12/24 11/12/24 14:30 Patient Tobacco Use Status Never used Tobacco 11/12/24 14:28 e-Cigarette/Vaping Use Never Used 11/12/24 14:28 PHQ-9: PHQ-9 Score PHQ-9: Total score 0 11/12/24 14:28 Depression Screening Interpretation: Negative Thrive Assessment: Date of Thrive Assessment Date Thrive assessed 11/12/24 11/12/24 14:28 Currently or been in a relationship where the following occur: No concerns reported Const General: well developed; No acute distress Nutritional Appearance: well nourished Orientation/consciousness: patient oriented x3 HENMT Head: Yes normocephalic and Yes atraumatic Eyes General: appearance normal, both eyes and all related structures Pupils: Equal, round and reactive pupils present EOM: EOMs intact bilaterally Resp Effort & Inspection: normal respiratory effort Neuro General: patient oriented x3 and gait normal Cranial nerves: Yes Equal, round and reactive pupils present Psych Affect: normal affect Coding Level of Care Code Est Pt Level 4 (03669) Diagnoses Diabetes E11.9 Obesity E66.9 Essential hypertension I10 Otitis externa H60.90 Additional Codes GARRETT-7 Assessment Billing - GARRETT-7 Assessment Tool: GARRETT-7 Assessment 14471 ([id number]) PHQ-9 - 27299 - PHQ-9 Billing: Yes ([id number]) Assessment & Plan Assessment & Plan (1) Diabetes: Code(s): E11.9 - Type 2 diabetes mellitus without complications Category: Medical Plan: A1c improved from 8.0% to 6.6% after starting Ozempic She had discontinue metformin but continue glipizide She would like to increase the Ozempic - will send script for the next dosing Continue diabetic diet (2) Obesity: Code(s): E66.9 - Obesity, unspecified Category: Medical Plan: Patient has lost about 5 lb Increasing Ozempic (3) Essential hypertension: Code(s): I10 - Essential (primary) hypertension Category: Medical Plan: Blood pressure is controlled Goal is less than 140/90 Continue current medications Work on exercise and weight loss (4) Otitis externa: Code(s): H60.90 - Unspecified otitis externa, unspecified ear Category: Medical Plan: Sending a script for ofloxacin Orders: Orders AMB Hemoglobin A1c Today Z13.9 - Encounter for screening, unspecified Medications: New omeprazole 20 mg PO DAILY 30 caps 3RF 30 days ofloxacin 0.3% 5 drps otic (ears) BID 5 mL 0RF 7 days
[2024-11-12 14:32] VITALS: BP 137/86; PULSE 92; RESP 13; TEMP 36.2; O2SAT 100; BMI 34.1
== END 2024-11-12 14:57 | disposition home or self-care (01) ==
LOC: HO.HMCFM 14:26
PROVIDERS: PCP Family Medicine; Visit Provider Family Medicine
DX: E11.9 Type 2 diabetes mellitus without complications (principal); E66.9 Obesity, unspecified; H60.93 Unspecified otitis externa, bilateral; Z68.34 Body mass index [BMI] 34.0-34.9, adult; I10 Essential (primary) hypertension

== ENCOUNTER → 2024-11-12 14:26 | Outpatient (BNVA) | payer BC, SELFPAY | PROVIDERS: PCP Family Medicine; Visit Provider Family Medicine | DX: E11.9 Type 2 diabetes mellitus without complications (principal); E66.9 Obesity, unspecified; I10 Essential (primary) hypertension; H60.90 Unspecified otitis externa, unspecified ear; Z79.899 Other long term (current) drug therapy; Z13.31 Encounter for screening for depression; Z13.39 Encounter for screening examination for other mental health and behavioral disorders | CPT/HCPCS: 96127 ==

== ENCOUNTER 2025-02-14 06:26 | Outpatient (REF) | payer BC, SELFPAY ==
[2025-02-14 08:24] LABS: Alanine Aminotransferase 17 U/L (0-31); Albumin Level 4.2 g/dL (3.5-5.0); Alkaline Phosphatase 57 U/L (39-117); Anion Gap 14 (12-20); Aspartate Amino Transferase 22 U/L (5-31); Blood Urea Nitrogen 15 mg/dL (9-16); Calcium 8.9 mg/dL (8.4-10.2); Carbon Dioxide 24 mmol/L (22-29); Chloride 105 mmol/L (96-108); Cholesterol 145 mg/dL (<200); Estimated Glomerular Filt Rate > 60; HDL Cholesterol 43 mg/dL (>40); Potassium 4.2 mmol/L (3.3-5.1); Sodium 139 mmol/L (135-145); Total Protein 6.9 g/dL (6.5-8.0); Triglycerides 135 mg/dL (<150)
== END 2025-02-14 06:27 | disposition home or self-care (01) ==
LOC: HO.LAB 06:26
PROVIDERS: PCP Family Medicine; Visit Provider Family Medicine
DX: Z00.00 Encounter for general adult medical examination without abnormal findings (principal); E11.9 Type 2 diabetes mellitus without complications; E78.5 Hyperlipidemia, unspecified
CPT/HCPCS: 36415; 80053; 80061; 83036

== ENCOUNTER 2025-02-15 14:22 | Outpatient (AMB) | payer BC, SELFPAY ==
--- NOTE | 2025-02-15 14:25 | A.OFFPC_ITS ---
Vital Signs 02/15/25 14:33 Height 5 ft 6 in Weight 213 lb 2 oz BMI 34.4 BP 120/80 Blood Pressure Location Rt brachial Position Sitting Respiration 13 Pulse 98 Pulse Source Pulse Oximeter Temp 99.1 F Temp Source Temporal Artery Scan Pulse Oximetry (%) 100 Oxygen Delivery Method Room Air Intake Visit Reasons: f/u HTN, diabetes Intake Note: Diane presents in the office today for hypertension and diabetes. 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 Is last menstrual period known: Yes Last menstrual period: 02/15/25 Post menopausal: No Patient : No Allergies prochlorperazine Allergy (Unknown, Verified 02/15/25 14:32) Panic and hyperactivity Medication List - Last Reconciled 02/15/25 by Donis Damian MD glipizide ER 10 mg (2 x 5 mg) PO DAILY 30 days lisinopril-hydrochlorothiazide 20-12.5 mg 1 tab PO DAILY 90 days ofloxacin 0.3% 5 drps otic (ears) BID 7 days omeprazole 20 mg PO DAILY 30 days rosuvastatin 10 mg PO DAILY 30 days semaglutide 1 mg (0.75 mL) subcut QWEEK 28 days Tobacco use date assessed: 02/15/25 Dental Screening Dental Screen Date: 02/15/25 Did you have a dental visit in the last 12 months?: Yes Did you have a dental problem in the last 6 months where you did not have access to dental care?: No Was dental information given to patient?: Patient has dentist HPI f/u HTN, diabetes HPI Details 49 y/o female presents to f/u HTN, diabe magali. Blood pressure today 120/80, 98p. She is on lisinopril-HCTZ 20-12.5mg daily. Labs drawn 02/14/25. Reviewed labs with pt. A1c 6.6%. She is on glipizide, semaglutide. HPI Comments History of Present Illness Details Documentation assistance for Donis Damian MD, was provided by Hima Orozco, Shipfitter Helper on 02/15/2025 at 3:04 PM EST. I, Dr. Damian, have read, observed, and verified documentation. COUNTS INCLUDE 234 BEDS AT THE [facility] Surgical History History of parotid gland excision History of section Family History Father HTN (hypertension) CVD (cardiovascular disease) Mother HTN (hypertension) Graves disease Sister No problems noted. Son No problems noted. Daughter No problems noted. 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 Current occupational exposures/hazards: No Sexual orientation: Unable to collect Gender identity: Unable to collect Cognitive needs: No Hearing needs: No Vision needs: No Female Reproductive History Menstrual Date of last menstrual period: 02/15/25 Questionnaire Thrive Questionnaire Date Thrive assessed: 11/12/24 I am a: Patient What is your living situation today?: I have a steady place to live Within the past 12 months, did the food you bought not last and you didn't have the money to get more?: Never true Within the past 12 months, did you worry whether your food would run out before you got money to buy more?: Never true Do you have trouble paying for medicines?: No Do you have trouble getting transportation to medical appointments?: No Do you have trouble paying your heating and electricity bill?: No Do you have trouble taking care of your child, family member or friend?: No Do you have trouble with day-to-day activities such as bathing, preparing meals, shopping, managing finances, etc.?: No Are you currently unemployed and looking for a job?: No Are you interested in more education?: No Please select the resources that you would like help with: None Currently or been in a relationship where the following occur: No concerns reported THRIVE Score: 0 GARRETT-7 AMB Questionnaire GARRETT-7 Date GARRETT - 7 assessed: 11/12/24 Source: Developed by Drs. Yoel Peralta, Yola Elkins, Saman Ross and colleagues, with an educational marilyn from [employer]. Review of Systems Const Denies chills, Denies fatigue, Denies fever(s), Denies headache(s) and Denies weakness ENT Denies dizziness and Denies headache(s) Card Denies chest pain, Denies lightheadedness, Denies dyspnea and Denies other (Palpitations) Resp Denies cough, Denies dyspnea, Denies wheezing and Denies other ( shortness of breath) Musc Denies numbness and Denies tingling Neuro Denies dizziness, Denies headache(s), Denies numbness, Denies tingling, Denies paresthesias and Denies weakness Psych Denies anxiety and Denies depression Endo Denies fatigue Aller/Immun Denies wheezing Physical exam (Primary Care) Vital Signs: Last Vital Signs Temp 99.1 F 02/15/25 14:33 Pulse 98 02/15/25 14:33 Resp 13 02/15/25 14:33 BP 120/80 02/15/25 14:33 Pulse Ox 100 02/15/25 14:33 Oxygen Delivery Method Room Air 02/15/25 14:33 BMI result Body Mass Index 34.4 Tobacco/Smoking Status: Tobacco use Status Tobacco use date assessed 02/15/25 02/15/25 14:37 Patient Tobacco Use Status Never used Tobacco 02/15/25 14:33 e-Cigarette/Vaping Use Never Used 02/15/25 14:33 Thrive Assessment: Date of Thrive Assessment Date Thrive assessed 11/12/24 02/15/25 14:27 Currently or been in a relationship where the following occur: No concerns reported Const General: no acute distress and well developed Nutritional Appearance: well nourished Orientation/consciousness: patient oriented x3 HENMT Head: Yes normocephalic and Yes atraumatic Eyes General: appearance normal, both eyes and all related structures Pupils: Equal, round and reactive pupils present EOM: EOMs intact bilaterally Resp Effort & Inspection: normal respiratory effort Auscultation: clear to auscultation bilaterally Cardio Rate: regular rate Rhythm: regular rhythm Heart sounds: S1 normal heart sound present, S2 normal heart sound present, no gallops, no murmurs and no rubs Neuro General: patient oriented x3 and gait normal Cranial nerves: Yes Equal, round and reactive pupils present Psych Affect: normal affect Coding Level of Care Code Est Pt Level 4 (96338) Est Pt Prev Care 40-64y(58619) Diagnoses Essential hypertension I10 Diabetes E11.9 Hyperlipidemia E78.5 Obesity E66.9 Elevated liver enzymes R74.8 Assessment & Plan Assessment & Plan (1) Essential hypertension: Code(s): I10 - Essential (primary) hypertension Category: Medical Plan: Blood pressure is controlled. Goal is less than 140/90 Continue current medication (2) Diabetes: Code(s): E11.9 - Type 2 diabetes mellitus without complications Category: Medical Plan: A1c 6.6%. Good control. Goal is less than 7% She has been on glipizide ER 10 mg daily and Ozempic. Changing medication to Mounjaro at patient request due to lack of weight loss on Ozempic. Has diabetic eye exam next month (3) Hyperlipidemia: Code(s): E78.5 - Hyperlipidemia, unspecified Category: Medical Plan: Lipids are fairly well controlled on rosuvastatin Continue current medication Continue working on weight loss (4) Obesity: Code(s): E66.9 - Obesity, unspecified Category: Medical Plan: Patient has not lost any significant weight on Ozempic She would like to try Mounjaro - sending a script for Mounjaro She would also like a referral to weight management-referred (5) Elevated liver enzymes: Code(s): R74.8 - Abnormal levels of other serum enzymes Category: Medical Plan: This has resolved Continue good hydration Continue working at weight loss Orders: Referrals Medical Weight Management Referral E11.9 - Type 2 diabetes mellitus without complications, E66.9 - Obesity, unspecified Medications: New tirzepatide (Mounjaro) 7.5 mg (0.5 mL) subcut QWEEK 2 mL 3RF 28 days E11.9 - Type 2 diabetes mellitus without complications, E66.9 - Obesity, unspecified Discontinued semaglutide for 4 weeks Discontinued Reason: Doctor's Order 1 mg (0.75 mL) subcut QWEEK 28 days 3 mL 3RF
[2025-02-15 14:33] VITALS: BP 120/80; PULSE 98; RESP 13; TEMP 37.3; O2SAT 100; BMI 34.4
== END 2025-02-15 15:07 | disposition home or self-care (01) ==
LOC: HO.HMCFM 14:23
PROVIDERS: PCP Family Medicine; Visit Provider Family Medicine
DX: E11.9 Type 2 diabetes mellitus without complications (principal); I10 Essential (primary) hypertension; E66.9 Obesity, unspecified; Z68.34 Body mass index [BMI] 34.0-34.9, adult; E78.5 Hyperlipidemia, unspecified; R74.01 Elevation of levels of liver transaminase levels